=== PATIENT | male | born 1985 | race Caucasian/White ===

== ENCOUNTER 2024-02-14 18:47 | Emergency (ER) | payer MEDICAID ==
[~2024-02-14] VITALS: Ht 175.3 cm; Wt 61.7 kg
[2024-02-14 19:19] VITALS: BP 136/75; PULSE 88; RESP 16; TEMP 97.4; O2SAT 99
--- NOTE | 2024-02-14 19:30 | NUR ---
TO BED 9 FOLLOWING TRIAGE
--- NOTE | 2024-02-14 20:15 | NUR ---
39YR OLD MALE BIB SELF C/O L KNEE PAIN X CHRONIC . PT DENIES ANY RECENT TRAUMA OR INJURY. HAD SURGERY WITH INSTRUAMENTION TO KNEE YEARS AGO. PT STATES PAIN IS CHRONIC. 8/10 PAIN RADIATES TO L FOOT. NKDA NO MED HX
[2024-02-14 21:03] VITALS: BP 122/85; PULSE 80; RESP 16; TEMP 97.4; O2SAT 99
--- NOTE | 2024-02-14 21:03 | NUR ---
DPatient discharged with v/s stable. Written and verbal after care instructions given and explained. Patient verbalized understanding. 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 Mother coming from [place]. Pt provided sandwich and will wait in lobby. All questions addressed prior to discharge. Advised to follow up with PMD.
--- NOTE | 2024-02-14 21:03 | NUR ---
ALSO PROVIDED ORTHOPEDIC DOCTORS FOR FOLLOW UP CARE
== END 2024-02-14 21:03 | disposition home or self-care (01) ==
LOC: MED 18:47
DX: M17.12 Unilateral primary osteoarthritis, left knee (principal); Z98.890 Other specified postprocedural states
CPT/HCPCS: 73562; 99283; Q0092